=== PATIENT | male | born 1990 | race African-American/Black ===

== ENCOUNTER 2016-11-08 01:08 | Emergency (ER) | payer MEDICAID | END 2016-11-08 02:00 | disposition home or self-care (01) | LOC: D.ER 01:08 | DX: M25.571 Pain in right ankle and joints of right foot (principal); F43.10 Post-traumatic stress disorder, unspecified; F17.200 Nicotine dependence, unspecified, uncomplicated ==

== ENCOUNTER 2016-11-19 01:27 | Emergency (ER) | payer MEDICAID | END 2016-11-19 02:17 | disposition home or self-care (01) | LOC: D.ER 01:27 | DX: M79.605 Pain in left leg (principal); M79.604 Pain in right leg; F43.10 Post-traumatic stress disorder, unspecified; F17.200 Nicotine dependence, unspecified, uncomplicated ==

== ENCOUNTER 2019-11-07 20:40 | Emergency (ER) | payer MEDICAID ==
[~2019-11-07] VITALS: Ht 180.3 cm; Wt 104.3 kg
[2019-11-07 20:49] VITALS: BP 121/61; Ht 180.3 cm; Wt 104.3 kg
[2019-11-07] MEDS ORDERED: NEURONTIN600 MG (20:50)
[2019-11-07] MEDS ORDERED: DEPAKOTE250 MG PO (20:51)
[2019-11-07] MEDS ORDERED: HYDROCODON-ACE1 EA10 PO (20:51)
[2019-11-07] MEDS ORDERED: ZOVIRAX200 MG PO (21:06)
== END 2019-11-07 21:31 | disposition home or self-care (01) ==
LOC: D.ER 20:40
DX: B00.9 Herpesviral infection, unspecified (principal)